=== PATIENT | female | born 1985 | race Caucasian/White ===

== ENCOUNTER 2017-06-06 15:06 | Outpatient (CLI) | payer MEDICAID ==
[2017-06-06 15:06] VITALS: BP 142/82
== END 2017-06-06 15:45 | disposition home or self-care (01) ==
LOC: ORTHO 15:06
PROVIDERS: ATTEND Nurse Practitioner Family
DX: S82.841D Displaced bimalleolar fracture of right lower leg, subsequent encounter for closed fracture with routine healing (principal); M19.071 Primary osteoarthritis, right ankle and foot; F32.9 Major depressive disorder, single episode, unspecified; F41.9 Anxiety disorder, unspecified; K21.9 Gastro-esophageal reflux disease without esophagitis; Z88.0 Allergy status to penicillin; Z88.8 Allergy status to other drugs, medicaments and biological substances; Z60.2 Problems related to living alone; X58.XXXD Exposure to other specified factors, subsequent encounter
CPT/HCPCS: 29540; 73610

== ENCOUNTER 2017-07-04 14:40 | Outpatient (CLI) | payer MEDICAID | END 2017-07-04 15:13 | disposition home or self-care (01) | LOC: ORTHO 14:40 | PROVIDERS: ATTEND Nurse Practitioner Family | DX: S82.841G Displaced bimalleolar fracture of right lower leg, subsequent encounter for closed fracture with delayed healing (principal); M19.071 Primary osteoarthritis, right ankle and foot; F32.9 Major depressive disorder, single episode, unspecified; F41.9 Anxiety disorder, unspecified; K21.9 Gastro-esophageal reflux disease without esophagitis; Z88.0 Allergy status to penicillin; Z88.8 Allergy status to other drugs, medicaments and biological substances; X58.XXXD Exposure to other specified factors, subsequent encounter | CPT/HCPCS: 73610 ==

== ENCOUNTER 2017-08-06 13:29 | Outpatient (CLI) | payer MEDICAID ==
[2017-08-06 13:28] VITALS: BP 133/86
== END 2017-08-06 14:25 | disposition home or self-care (01) ==
LOC: ORTHO 13:29
PROVIDERS: ATTEND Nurse Practitioner Family
DX: S93.491D Sprain of other ligament of right ankle, subsequent encounter (principal); F32.9 Major depressive disorder, single episode, unspecified; F41.9 Anxiety disorder, unspecified; K21.9 Gastro-esophageal reflux disease without esophagitis; Z88.0 Allergy status to penicillin; Z88.8 Allergy status to other drugs, medicaments and biological substances; X58.XXXD Exposure to other specified factors, subsequent encounter
CPT/HCPCS: 29260; 73610; 99213

== ENCOUNTER 2017-12-03 02:02 | Emergency (ER) | payer MEDICAID ==
[~2017-12-03] VITALS: Ht 162.6 cm; Wt 118.6 kg
[2017-12-03] MEDS ORDERED: HYDROcodone/acetaminophen 10/325mg tab PO ONE (02:45)
[2017-12-03] MEDS ORDERED: TETRAcaine 0.5% ophthalmic drops 15ml EACHEYE ONE (02:45)
[2017-12-03] MEDS ORDERED: PROPARACAINE/FLUORESCEIN ophthalmic drops 5ml bottle RIGHTEYE ONE (02:50)
[2017-12-03] MEDS ORDERED: morphine 4 MG/ML inj SYRINge IM ONE (04:30)
[2017-12-03] MEDS ORDERED: ondansetron/PF 4mg/2ml inj IM ONE (04:30)
[2017-12-03] MEDS ORDERED: IBUP-1984 PO (04:33)
[2017-12-03] MEDS ORDERED: GENOO OP (04:33)
[2017-12-03] MEDS ORDERED: HYDR-565 PO (04:33)
[2017-12-03 05:02] VITALS: BP 141/78
== END 2017-12-03 05:04 | disposition home or self-care (01) ==
LOC: ER 02:03
DX: S05.01XA Injury of conjunctiva and corneal abrasion without foreign body, right eye, initial encounter (principal); Z88.0 Allergy status to penicillin; Z88.8 Allergy status to other drugs, medicaments and biological substances; Z79.899 Other long term (current) drug therapy; W55.03XA Scratched by cat, initial encounter; Y93.89 Activity, other specified; Y92.89 Other specified places as the place of occurrence of the external cause; Y99.8 Other external cause status
CPT/HCPCS: 96372; 99284; J2270; J2405

== ENCOUNTER 2018-11-27 06:22 | Emergency (ER) | payer MEDICAID ==
[~2018-11-27] VITALS: Ht 162.6 cm; Wt 123.0 kg
[~2018-11-27 06:22] MED LIST: GENOO OP
[2018-11-27 06:25] VITALS: BP 163/89
[2018-11-27] MEDS ORDERED: CIPR10DR EACH EAR (06:54)
[2018-11-27] MEDS ORDERED: ibuprofen tablet 400 MG TABLET PO ONE (07:25)
== END 2018-11-27 07:30 | disposition home or self-care (01) ==
LOC: ER 06:22
DX: H60.93 Unspecified otitis externa, bilateral (principal); F41.9 Anxiety disorder, unspecified; F32.9 Major depressive disorder, single episode, unspecified; Z98.890 Other specified postprocedural states; Z60.2 Problems related to living alone; Z88.0 Allergy status to penicillin; Z88.8 Allergy status to other drugs, medicaments and biological substances; Z79.899 Other long term (current) drug therapy
CPT/HCPCS: 99283

== ENCOUNTER 2023-11-11 10:46 | Outpatient (CLI) | payer MEDICAID | END 2023-11-11 23:59 | disposition home or self-care (01) | LOC: RAD 10:46 | PROVIDERS: ATTEND Student in an Organized Health Care Education/Training Program | DX: D13.4 Benign neoplasm of liver (principal); R10.2 Pelvic and perineal pain; K76.89 Other specified diseases of liver; K76.0 Fatty (change of) liver, not elsewhere classified; D25.9 Leiomyoma of uterus, unspecified; R33.9 Retention of urine, unspecified | CPT/HCPCS: 76700; 76830; 93976 ==